=== PATIENT | male | born 1995 | race Caucasian/White ===

== ENCOUNTER 2017-10-02 15:47 | Emergency (ER) | payer OTHER ==
[2017-10-02 15:58] VITALS: BP 142/91; TEMP 98.7; BMI 22.4
--- NOTE | 2017-10-02 16:18 | DI ---
EXAM: Three views of the left ankle. History: Left ankle pain and trauma. Findings: No acute fracture or dislocation. No abnormal calcifications or radiopaque foreign bodies . Joint spaces are preserved. Anterior lateral soft tissue swelling. Impression: 1. No acute osseous abnormality. 2. Anterior lateral soft tissue swelling
--- NOTE | 2017-10-02 16:18 | DI ---
EXAM: Three views of the left foot. History: Left foot pain and trauma. Findings: No acute fracture or dislocation. No abnormal calcifications or radiopaque foreign bodies . Joint spaces are preserved. Lateral soft tissue swelling at the ankle. Impression: 1. No acute osseous abnormality. 2. Lateral soft tissue swelling at the ankle
--- NOTE | 2017-10-02 16:54 | ED.PDOC ---
General ED Provider: Dr. RICH BELLO Chief Complaint: Ankle Pain/Injury Stated Complaint: ankle pain Time Seen by Physician: 16:00 Mode of Arrival: Walk-In Information Source: Patient Exam Limitations: No limitations Primary Care Provider: EBENEZER GRAY Nursing and Triage Documentation Reviewed and Agree: Yes Reviewed sepsis parameters & appropriate labs ordered?: Yes System Inflammatory Response Syndrome: Not Applicable Sepsis Protocol: For patient's 13 years and over: Temp is 96.8 and below OR 101 and greater Pulse >90 BPM Resp >20/minute Acutely Altered Mental Status Are patient's symptoms suggestive of a new infection, such as: -Pneumonia -Skin, Soft Tissue -Endocarditis -UTI -Bone, Joint Infection -Implantable Device -Acute Abdominal Infection -Wound Infection -Meningitis -Blood Stream Catheter Infection -Unknown System Inflammatory Response Syndrome: Not Applicable Musculoskeletal Complaint Exam - Ankle/Foot Complaint/Exam Location of Injury: Reports: Left, Ankle, Foot Mechanism of Injury: Reports: Trauma (twisted ankle) Onset/Duration: 1 hr Symptoms Are: Reports: Still present Onset of Pain: Reports: Immediate Initial Severity: Moderate Current Severity: Moderate Location: Reports: Discrete Character: Reports: Aching, Spasmodic Alleviating: Reports: Rest, Position Aggravating: Reports: Movement, Weight bearing, Prolonged standing Able to Bear Weight: Yes Associated Signs and Symptoms: Reports: Swelling. Denies: Redness, Bruising, Fever, Weakness, Numbness, Tingling Gout Risk Factors: Reports: None Related Surgical History: Reports: None Lower Extremity Findings: Present: Swelling Achilles Tendon Abnormality: No Limited Range of Motion: Present: Inversion Differential Diagnosis: Closed Fracture Review of Systems - Review Of Systems Constitutional: Reports: No symptoms Eyes: Reports: No symptoms Ears, Nose, Mouth, Throat: Reports: No symptoms Respiratory: Reports: No symptoms Cardiac: Reports: No symptoms GI: Reports: No symptoms : Reports: No symptoms Musculoskeletal: Reports: Joint pain Skin: Reports: No symptoms Neurological: Reports: No symptoms Endocrine: Reports: No symptoms Hematologic/Lymphatic: Reports: No symptoms All Other Systems: Reviewed and Negative Past Medical History - Past Medical History Previously Healthy: Yes Endocrine: Reports: None Cardiovascular: Reports: None Respiratory: Reports: None Hematological: Reports: None Gastrointestinal: Reports: None Genitourinary: Reports: None Neuro/Psych: Reports: None Musculoskeletal: Reports: None Cancer: Reports: None - Surgical History General Surgical History: Reports: None - Family History Family History: Reports: None - Social History Smoking Status: Never smoker Hx Substance Use: No Alcohol Screening: None Physical Exam - Physical Exam Appearance: Well-appearing, No pain distress, Well-nourished Eyes: FACUNDO, EOMI, Conjunctiva clear ENT: Ears normal, Nose normal, Oropharynx normal Respiratory: Airway patent, Breath sounds clear, Breath sounds equal, Respirations nonlabored Cardiovascular: RRR, Pulses normal, No rub, No murmur GI/: Soft, Nontender, No masses, Bowel sounds normal, No Organomegaly Musculoskeletal: Limited ROM (ankle left) Skin: Warm, Dry, Normal color Neurological: Sensation intact, Motor intact, Reflexes intact, Cranial nerves intact, Alert, Oriented Psychiatric: Affect appropriate, Mood appropriate Interpretation - Radiology Interpretation Radiology Interpretation By: Radiologist Radiology Results: No acute changes Critical Care Note - Critical Care Note Total Time (mins): 0 Course - Course Orders, Labs, Meds: Orders Category Date Time Status ANKLE, LEFT MIN 3 VIEWS Stat RADS 10/02/17 15:54 Ordered FOOT, LEFT 3 VIEWS Stat RADS 10/02/17 15:54 Ordered Vital Signs: Temp Pulse Resp BP Pulse Ox 10/02/17 15:47 98.7 F 94 H 18 142/91 H 97 Departure - Departure Time of Disposition: 16:54 Disposition: HOME SELF-CARE Discharge Problem: Ankle pain, Left ankle sprain Instructions: Ankle Sprain (ED) Condition: Good Pt referred to PMD for follow-up: Yes IPMP verified?: No Additional Instructions: Please call your Family Physician as soon as possible to schedule a follow-up appointment. Allergies/Adverse Reactions: Allergies clarithromycin [From Biaxin] Adverse Reaction (Verified 10/02/17 15:50) wasps Adverse Reaction (Uncoded 09/08/15 14:24) Home Medications: Ambulatory Orders Dextroamphetamine/Amphetamine [Adderall Xr 25 mg Capsule] 25 mg PO DAILY Risperidone 1 mg PO BEDTIME 09/08/15
== END 2017-10-02 17:05 | disposition home or self-care (01) ==
LOC: ED 15:47
DX: S93.402A Sprain of unspecified ligament of left ankle, initial encounter (principal); X50.1XXA Overexertion from prolonged static or awkward postures, initial encounter
CPT/HCPCS: 99283

== ENCOUNTER 2018-04-06 11:48 | Emergency (ER) ==
[2018-04-06 12:00] VITALS: BP 154/81; TEMP 97.2; BMI 23.4
== END 2018-04-06 13:54 | disposition left against medical advice (07) ==
LOC: ED 11:48
DX: M25.572 Pain in left ankle and joints of left foot (principal); W19.XXXA Unspecified fall, initial encounter

== ENCOUNTER 2018-09-14 01:55 | Emergency (ER) ==
[2018-09-14 02:05] VITALS: BP 122/80; TEMP 96.2; BMI 22.3
[2018-09-14] MEDS ORDERED: TENIVAC IM ONE (02:26)
--- NOTE | 2018-09-14 03:14 | DI ---
EXAM: Righthand three view HISTORY: Hand pain post traumatic FINDINGS / IMPRESSION: No bony or articular abnormality is seen. No radiopaque foreign body. Negat manuel exam.
--- NOTE | 2018-09-14 03:16 | DI ---
EXAM: Right wrist three views HISTORY: Injury and pain FINDINGS/IMPRESSION: No vickie or articular abnormality. No radiopaque foreign body. Negative exam.
--- NOTE | 2018-09-14 03:30 | ED.PDOC ---
General ED Provider: Dr. ANDRES LIN-ER Chief Complaint: Laceration Stated Complaint: he punched a window and cut his wrist Time Seen by Physician: 02:00 Mode of Arrival: Walk-In Information Source: Patient Exam Limitations: No limitations Primary Care Provider: EBENEZER GRAY Nursing and Triage Documentation Reviewed and Agree: Yes Does patient meet sepsis criteria?: No System Inflammatory Response Syndrome: Not Applicable Sepsis Protocol: For patient's 13 years and over: Temp is 96.8 and below OR 101 and greater Pulse >90 BPM Resp >20/minute Acutely Altered Mental Status Are patient's symptoms suggestive of a new infection, such as: -Pneumonia -Skin, Soft Tissue -Endocarditis -UTI -Bone, Joint Infection -Implantable Device -Acute Abdominal Infection -Wound Infection -Meningitis -Blood Stream Catheter Infection -Unknown Musculoskeletal Complaint Exam - Hand/Wrist Complaint/Exam Location of Pain: Reports: Right, Wrist Mechanism of Injury: Reports: Trauma Onset/Duration: 30min Symptoms Are: Still present Onset of Pain: Reports: Immediate Initial Severity: Mild Current Severity: Mild Location: Reports: Discrete Character: Reports: Dull, Aching Aggravating: Reports: Movement Associated Signs and Symptoms: Denies: Swelling, Redness, Bruising, Fever, Weakness, Numbness, Tingling Hand/Wrist Findings: Present: Ecchymosis Tenderness: Present: Radius, Ulna Compartment Syndrome Risk Factors: Present: Pain Differential Diagnoses: Abrasion, Puncture Wound, Other Review of Systems - Review Of Systems Constitutional: Reports: No symptoms Eyes: Reports: No symptoms Ears, Nose, Mouth, Throat: Reports: No symptoms Respiratory: Reports: No symptoms Cardiac: Reports: No symptoms GI: Reports: No symptoms : Reports: No symptoms Musculoskeletal: Reports: No symptoms Skin: Reports: No symptoms Neurological: Reports: No symptoms Endocrine: Reports: No symptoms Hematologic/Lymphatic: Reports: No symptoms All Other Systems: Reviewed and Negative Past Medical History - Past Medical History Previously Healthy: Yes Endocrine: Reports: None Cardiovascular: Reports: None Respiratory: Reports: None Hematological: Reports: None Gastrointestinal: Reports: None Genitourinary: Reports: None Neuro/Psych: Reports: None Musculoskeletal: Reports: None Cancer: Reports: None - Surgical History General Surgical History: Reports: None - Family History Family History: Reports: None - Social History Smoking Status: Never smoker Hx Substance Use: No Alcohol Screening: Occasionally - Immunizations Tetanus Shot up to Date: No Physical Exam - Physical Exam Appearance: Well-appearing, No pain distress, Well-nourished Pain Distress: Mild Eyes: FACUNDO ENT: Ears normal, Nose normal, Oropharynx normal Neck: Supple Respiratory: Airway patent, Breath sounds clear, Breath sounds equal, Respirations nonlabored Cardiovascular: RRR, Pulses normal, No rub, No murmur GI/: Soft, Nontender, No masses, Bowel sounds normal, No Organomegaly Musculoskeletal: Normal strength, ROM intact, No edema, No calf tenderness Skin: Warm, Dry, Normal color Neurological: Sensation intact, Motor intact, Reflexes intact, Cranial nerves intact, Alert, Oriented Psychiatric: Affect appropriate, Mood appropriate Interpretation - Radiology Interpretation Radiology Interpretation By: ED Physician Radiology Results: Negative Exam Interpreted: Other Critical Care Note - Critical Care Note Total Time (mins): 0 Course - Course Orders, Labs, Meds: Lab Review 09/14/18 02:35 Plasma/Serum Alcohol 185.0 H Orders Category Date Time Status Wound care [ED WOUND CARE] .ONCE EMERGENCY 09/14/18 02:26 Active ETOH LEVEL [BLOOD ALCOHOL] Stat LAB 09/14/18 02:35 Completed Tetanus and Diphtheria Tox/Pf [Tenivac] MEDS 09/14/18 02:26 Discontinued 0.5 ml IM .ONCE ONE HAND, RIGHT 3 VIEWS Stat RADS 09/14/18 02:25 Completed WRIST, RIGHT 3 VIEWS Stat RADS 09/14/18 02:25 Completed Medications Discontinued Medications Generic Name Dose Route Start Last Admin Trade Name Freq PRN Reason Stop Dose Admin Tetanus/Diphtheria Toxoids Adsorbed 0.5 ml 09/14/18 02:26 09/14/18 02:59 Tenivac IM 09/14/18 02:27 0.5 ml .ONCE ONE Administration Vital Signs: Temp Pulse Resp BP Pulse Ox 09/14/18 01:56 96.2 F L 110 H 18 122/80 97 Departure - Departure Time of Disposition: 03:30 Disposition: HOME SELF-CARE Discharge Problem: Puncture wound of wrist Qualifiers: Encounter type: initial encounter Laterality: right Qualified Code(s): S61.531A - Puncture wound without foreign body of right wrist, initial encounter Instructions: Diphtheria/Tetanus Vaccine (By injection) Condition: Good Pt referred to PMD for follow-up: Yes IPMP verified?: No Additional Instructions: keflex 500mg bid x 7 days---keep wound clean and dry Allergies/Adverse Reactions: Allergies clarithromycin [From Biaxin] Adverse Reaction (Verified 04/06/18 11:56) wasps Adverse Reaction (Uncoded 09/08/15 14:24) Home Medications: Ambulatory Orders Dextroamphetamine/Amphetamine [Adderall Xr 25 mg Capsule] 25 mg PO DAILY Risperidone 1 mg PO BEDTIME 09/08/15 Dextroamphetamine Sulfate [Dextroamphetamine Sulfate ER] 5 mg PO DAILY 09/14/18 Disposition Discussed With: Patient, Family
[2018-09-14] MEDS ORDERED: KEFLEX PO STA (03:32)
== END 2018-09-14 03:39 | disposition home or self-care (01) ==
LOC: ED 01:55
DX: S61.531A Puncture wound without foreign body of right wrist, initial encounter (principal); W25.XXXA Contact with sharp glass, initial encounter
CPT/HCPCS: 36415; 80307; 90471; 90714; 99283